=== PATIENT | female | born 1955 | race Caucasian/White ===

== ENCOUNTER → 2018-12-25 | Outpatient (CLI) | payer BC ==
--- NOTE | 2018-12-25 15:50 | XR ---
EXAMINATION TYPE: XR Hip Complete LT DATE OF EXAM: 12/25/2018 COMPARISON: None HISTORY: M25.552 TECHNIQUE: 2 view left hip FINDINGS: Femoral head articulates with the acetabulum. Joint spaces narrowed. No acute fractures or dislocations are evident. Are at left sacroiliac joint within the [id number] is unremarkable IMPRESSION: 1. Mild degenerative changes left hip
== END | disposition home or self-care (01) ==
LOC: RADXRYALE 13:06
PROVIDERS: ATTEND Internal Medicine
DX: M16.12 Unilateral primary osteoarthritis, left hip (principal)
CPT/HCPCS: 73502